=== PATIENT | female | born 1995 | race Caucasian/White ===

== ENCOUNTER 2017-03-24 00:59 | Emergency (ER) | payer SELFPAY ==
[~2017-03-24] VITALS: Ht 167.6 cm; Wt 63.3 kg
[2017-03-24 01:01] VITALS: BP 149/105
[2017-03-24] MEDS ORDERED: LIDOCAINE 1%, 20ML ONE (01:34)
[2017-03-24] MEDS ORDERED: LIDOCAINE 1%, 10ML INFIL ONE (02:30)
[2017-03-24] MEDS ORDERED: BACITRACIN ZINC OINT 500U/GM, 0.9 GM ONE (02:41)
== END 2017-03-24 03:32 | disposition home or self-care (01) ==
LOC: ED 03:26
DX: S01.81XA Laceration without foreign body of other part of head, initial encounter (principal); K50.90 Crohn's disease, unspecified, without complications; I45.6 Pre-excitation syndrome; W01.0XXA Fall on same level from slipping, tripping and stumbling without subsequent striking against object, initial encounter; Y93.89 Activity, other specified; Y92.410 Unspecified street and highway as the place of occurrence of the external cause; Y99.8 Other external cause status
CPT/HCPCS: 12011